=== PATIENT | male | born 1965 | race Caucasian/White ===

== ENCOUNTER 2017-03-26 08:28 | Emergency (ER) | payer MEDICARE | END 2017-03-26 08:55 | disposition home or self-care (01) | LOC: ER 08:28 | DX: K04.7 Periapical abscess without sinus (principal); G47.30 Sleep apnea, unspecified; Z98.890 Other specified postprocedural states; Z87.891 Personal history of nicotine dependence; Z79.82 Long term (current) use of aspirin; Z79.899 Other long term (current) drug therapy; Z88.8 Allergy status to other drugs, medicaments and biological substances ==